=== PATIENT | female | born 1955 | race American Indian/Alaskan Native ===

== ENCOUNTER 2016-12-22 08:27 | Outpatient (CLI) | payer OTHER ==
--- NOTE | 2016-12-22 15:03 | Mammography Report ---
BILATERAL DIGITAL SCREENING MAMMOGRAM WITH CAD: 12/22/16 08:27:00 CLINICAL: Routine screening.Breast cancer survivor status post right partial mastectomy, chemotherapy and radiation therapy in [id number] . COMPARISON:12/22/15 FINDINGS: The breasts are heterogeneously dense, which may obscure small masses. The right breast is smaller than the left with stable postsurgical scar. No mass, suspicious architectural distortion or suspicious calcifications. IMPRESSION: No mammographic evidence of malignancy. BI-RADS CATEGORY: 2 -- Benign RECOMMENDATION: Routine mammographic screening in one year. COMMENT: Patient follow-up letters are generated via our [employer] application.
== END 2016-12-22 08:28 | disposition home or self-care (01) ==
LOC: SPVWC 08:27
PROVIDERS: ATTEND Obstetrics & Gynecology
DX: Z12.31 Encounter for screening mammogram for malignant neoplasm of breast (principal); Z90.12 Acquired absence of left breast and nipple
CPT/HCPCS: 77067; G0202

== ENCOUNTER 2017-12-23 08:41 | Outpatient (CLI) | payer OTHER ==
--- NOTE | 2017-12-23 13:34 | Mammography Report ---
BILATERAL DIGITAL SCREENING MAMMOGRAM with CAD: 12/23/17 08:41:00 CLINICAL: Routine screening.Breast cancer survivor status post right partial mastectomy, chemotherapy and radiation therapy in [id number]. COMPARISON:12/22/16 FINDINGS: The breasts are heterogeneously dense, which may obscure small masses. The right breast is smaller than the left with stable postsurgical scar in the lower inner breast near the Nipple. 2 groups of new right breast calcifications require additional imaging. No mass or architectural distortion. The left breast is negative. IMPRESSION: Right calcifications requiring further workup. BI-RADS CATEGORY: 0 -- Additional Imaging Evaluation Required RECOMMENDATION: Recall for right ML, LM and spot magnification views of right calcifications . ACR BI-RADS MAMMOGRAPHIC CODES: 0 = Needs additional imaging evaluation; 1 = Negative; 2 = Benign; 3 = Probably benign; 4 = Suspicious; 5 = Malignant; 6 = Known biopsy-proven malignancy COMMENT: 1. Dense breast tissue, i.e., adenosis, fibrocystic changes, etc., may obscure an underlying neoplasm. 2. Approximately 10% of cancers are not detected with mammography. 3. A negative mammography report should not delay biopsy if a clinically suspicious mass is present. COMMENT: Patient follow-up letters are generated via our [employer] application.
== END 2017-12-23 08:42 | disposition home or self-care (01) ==
LOC: SPVWC 08:41
PROVIDERS: ATTEND Obstetrics & Gynecology
DX: Z12.31 Encounter for screening mammogram for malignant neoplasm of breast (principal)
CPT/HCPCS: 77067